=== PATIENT | female | born 1995 | race Caucasian/White ===

== ENCOUNTER 2019-09-02 19:39 | Inpatient (IN) | payer OTHER ==
[~2019-09-02] VITALS: Ht 162.6 cm; Wt 80.9 kg
[2019-09-02] MEDS ORDERED: PRENTAB53 PO (20:31)
[2019-09-02] MEDS ORDERED: LACTATED RINGER'S 1000 ML IV STA (20:47)
--- NOTE | 2019-09-02 21:06 | HPEPDOC ---
Obstetrical History & Physical General Date of Admission Sep 02, 2019 at 20:09 Primary Care Physician: A History of Present Illness Patient is a 23 yo G1 @39+2 weeks gestation by first trimester US presents with concern for LOF at 1900 today. She did not have regular contractions prior to r upture of membranes. denies VB. 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 Past Medical History Medical History denies Surgical History: Other (urehtra sx for recurrent UTI as a child) Family History Significant Family History: No pertinent family hx Social History Marital Status: Family situation: Spouse/partner home Psychosocial History: No pertinent psych hx * Smoker: non-smoker Alcohol: Denies Drugs: denies Imunizations Tdap status: current Influenza Status: needs Allergies Coded Allergies: acetaminophen (Verified Allergy, Unknown, 09/02/19) codeine (Verified Allergy, Unknown, 09/02/19) Medications Scheduled Vit,Calc76/Iron/Folic (Prenatabs Rx Tablet) 1 Each Tablet, 1 TAB PO DAILY Physical Examination Physical Examination GENERAL: Alert and oriented times three. ABDOMEN: Gravid and non-tender to touch. FETUS: fetus is cephalic by Marcello. HEART RATE: Regular rate and rhythm. LUNGS: Clear to auscultation (CTA). EXTREMITIES: No edema/erythema/tenderness EFW: 3200 gm BY Marcello Laboratory Data 24H LABS Laboratory Tests 2 09/02/19 20:39: Serology Scanned Report Hepatitis B Testing Pertinent Laboratoy Data Blood Type: O+ RBC Antibody Screen: Negative HIV: Negative Hepatitis B: Negative Rapid Plasma Reagin: Nonreactive Rubella: Immune Chlamydia/Gonorrhea: Negative Group B Streptococcus: Negative ([id number]) Anatomy Ultrasound Ultrasound Date: May 04, 2019 Placenta Location: Posterior Normal Anatomy: Yes Placenta Previa: No Vaginal Examination Dilation: 1cm Effacement: 50% Station: -3 Cervical Consistency: Soft Cervical Position: Middle Presentation: Cephalic presentation Assessment Heart Rate (FHR): 135 Variability: Moderate Accelerations: Positive Decelerations: None, Early Tocometer Contractions: Yes Assessment/Plan Assessment patient is a 23 yo G1 @39+2wks gestation with PROM at 1900 today. Discussed using oxytocin to augment labor as indicated. Discussed monitoring with external monitors for contractions and heart rate with internal monitor as clinically indicated. Risk of delivery for maternal/ concerns, risk of infection requiring iv antibiotics, bleeding needing blood transfusion and associated risk of anaphylactic reaction and transmission of blood borne pathogens such as HIV and hepatitis, use of forceps or vacuum to assist in vaginal delivery in an emergency or maternal exhaustion and associated risks of injuring to baby and worsen maternal laceration, episiotomy discussed with patient. Plan Admit and orient. Biomedical Equipment Technician and consent. Diet: clears Group B Streptococcus (GBS) neg. Labs and intravenous (IV) per unit protocol. Anticipate [normal spontaneous delivery ()]. C-S as appropriate. YAMEL NEVES DO Sep 02, 2019 21:01
[2019-09-02] MEDS ORDERED: OXYTOCIN DRIP 30 UNITS in IV 1 EA IV SCH (21:15)
[2019-09-02 22:26] LABS: HEMATOCRIT 37.9 % (36.0-47.0); HEMOGLOBIN 12.6 g/dl (12.0-15.5); MEAN CORPUSCULAR HEMOGLOBIN 30.1 pg (27.0-33.0); MEAN CORPUSCULAR HGB CONC 33.2 g/dl (32.0-36.5); MEAN CORPUSCULAR VOLUME 90.7 fl (80.0-96.0); PLATELET COUNT, AUTOMATED 195 10^3/uL (150-450); RED BLOOD COUNT 4.18 10^6/uL (4.00-5.40); WHITE BLOOD COUNT 10.1 10^3/uL (4.0-10.0)
[2019-09-02 22:45] VITALS: BP 136/89
[2019-09-02 23:00] VITALS: BP 129/71
[2019-09-02 23:30] VITALS: BP 135/80
[2019-09-02] MEDS: LR 1,000 ML IV SCH (23:58)
[2019-09-03] VITALS (72 sets, daily range): BP systolic 95–170; BP diastolic 57–117
[2019-09-03] MEDS ORDERED: PROMETHAZINE INJ 25 MG/ML VIAL (J2550) IV ONE (01:15)
[2019-09-03] MEDS ORDERED: NALBUPHINE HCL 10 MG/ML AMP (J2300) IV ONE (01:15)
[2019-09-03] MEDS ORDERED: NALBUPHINE HCL 10 MG/ML AMP (J2300) IM ONE (01:15)
[2019-09-03] MEDS: LR 1,000 ML IV SCH ×3 (03:57→10:52)
[2019-09-03] MEDS ORDERED: FENTANYL 2MCG/ML ROPIVACAINE 0.2% IN 0.9% NACL 100ML IVBAG As Ordered ONE (05:40)
[2019-09-03] MEDS ORDERED: REFRIGERATOR IV KEYS XX PRN (06:00)
[2019-09-03] MEDS ORDERED: EPIDURAL COMMENT XX SCH (06:00)
[2019-09-03] MEDS ORDERED: EPIDURAL/PCA KEYS XX PRN (06:00)
[2019-09-03] MEDS ORDERED: FENTANYL/ROPIVACAINE/NACL BAG 100 ML EPIDURAL SCH (06:00)
[2019-09-03] MEDS ORDERED: diphenhydrAMINE INJ 50MG/ML VIAL (J1200) IV PRN (06:00)
[2019-09-03] MEDS ORDERED: NALOXONE INJ 0.4 MG/1 ML VIAL (J2310) IV PRN (06:00)
[2019-09-03] MEDS ORDERED: ONDANSETRON 4MG/2ML VIAL (J2405) IV PRN (06:00)
[2019-09-03] MEDS ORDERED: LACTATED RINGER'S 1000 ML IV PRN (06:00)
[2019-09-03] MEDS ORDERED: ePHEDrine SULFATE 25 MG/5 ML(5MG/ML) SYRINGE IV PRN (06:00)
[2019-09-03] MEDS ORDERED: ePHEDrine SULFATE 25 MG/5 ML(5MG/ML) SYRINGE As Ordered ONE (07:00)
[2019-09-03] MEDS ORDERED: OXYTOCIN INJ 10 UNITS/ML VIAL (J2590) IV ONE ×2 (12:30→13:30)
--- NOTE | 2019-09-03 12:54 | IPN ---
DATE: 09/03/2019 23-year-old 1, at 39 and 2 weeks of gestation was admitted with spontaneous contractions and ruptured membranes. She has no specific risk factors. She had an epidural in place. She had some variables early. On examination after epidural, she is found to be fully dilated, +1 station in the left occiput transverse (LOT) position. Category 1 strip. We are going allow her to labor down, and we anticipate a vaginal delivery. Safe to proceed.
[2019-09-03 13:07] LABS: CORD GAS ABE A -3.3; CORD GAS HCO3 A 20.3 MEQ/L; CORD GAS O2 SAT A 71.7 %; CORD GAS PCO2 A 33.5 mmHg; CORD GAS PH A 7.401 UNITS; CORD GAS PO2 A 27.2 mmHg; CORD GAS TCO2 A 21.4 MEQ/L
[2019-09-03 13:10] LABS: CORD GAS ABE V -2.7; CORD GAS O2 SAT V 75.7 %; CORD GAS PCO2 V 30.5 mmHg; CORD GAS PH V 7.434 UNITS; CORD GAS PO2 V 29.7 mmHg; CORD GAS SBC V 21.6 MEQ/L; CORD GAS TCO2 V 20.9 MEQ/L
[2019-09-03] MEDS: OXYTOCIN DRIP 30 UNITS in IV 1 EA IV SCH ×2 (13:19→17:19)
[2019-09-03] MEDS ORDERED: RHOGAM 300 MCG (1500 IU) INJ (J2790) IM SCH (13:30)
[2019-09-03] MEDS ORDERED: METHYLERGONOVINE MALEATE 0.2 MG TAB PO PRN (13:30)
[2019-09-03] MEDS ORDERED: ACETAMINOPHEN TAB 650MG DOSE (2X325MG) PO PRN (13:30)
[2019-09-03] MEDS ORDERED: IBUPROFEN 800 MG TAB PO PRN (13:30)
[2019-09-03] MEDS ORDERED: IBUPROFEN 600 MG TAB PO PRN (13:30)
[2019-09-03] MEDS ORDERED: DOCUSATE SODIUM 100 MG CAP PO PRN (13:30)
[2019-09-03] MEDS ORDERED: ANUSOL HC CREAM 30GM TOP PRN (13:30)
[2019-09-03] MEDS ORDERED: DIBUCAINE 1% OINTMENT 30GM TOP PRN (13:30)
[2019-09-03] MEDS ORDERED: MEASLES,MUMPS,RUBELLA VACCINE INJ (MMR-II) (90707) SC SCH (13:30)
[2019-09-03] MEDS ORDERED: MOM 30ML SUSPENSION UDC PO PRN (13:30)
[2019-09-03] MEDS: ACETAMINOPHEN 500 MG TAB PO PRN (13:40)
[2019-09-03] MEDS: PRENATAL VITAMINS CHEWABLE TABLET PO SCH (15:19)
[2019-09-04 06:00] VITALS: BP 117/57
[2019-09-04 06:23] LABS: HEMATOCRIT 34.2 % (36.0-47.0); HEMOGLOBIN 11.4 g/dl (12.0-15.5); MEAN CORPUSCULAR HGB CONC 33.3 g/dl (32.0-36.5); PLATELET COUNT, AUTOMATED 149 10^3/uL (150-450); WHITE BLOOD COUNT 13.9 10^3/uL (4.0-10.0)
--- NOTE | 2019-09-04 08:46 | IPNPDOC ---
Progress Note Date of Service: Sep 04, 2019 Day#: 1 Progress Note SUBJECT: Patient is a 23 yo S/P ppd #1. She has been ambulating, voiding spontaneously without issue and tolerating regular diet. Breast feeding without issue. Reports lochia is like a heavey period. Patient reports history of depression and was on medication prior to being . She had stopped her medication when she found out she is . She is concern about depression and requests to be restarted on anti depression medications. Plans on using norqd for contraceptive. OBJECTIVE: VITAL SIGNS: Within normal limits, afebrile. Alert and oriented times three. Abdomen: Fundus firm at U-2. Soft, NTTP. A/P patient is ppd#1, doing well. Discussed with patient regarding importance of seeing behavior health in conjunction with medical therapy. Behavior health consult placed for patient. Will start patient on zoloft at home. encourage bf. routine ppc. anticipate d/c home on ppd #2. Le, do VS, I&O, 24H, Fishbone Vital Signs/I&O Vital Signs Date Time Temp Pulse Resp B/P (MAP) Pulse Ox O2 Delivery O2 Flow Rate FiO2 09/04/19 06:00 100.0 61 18 117/57 (77) 96 Room Air I&O- Last 24 Hours up to 6 AM 09/04/19 06:00 Intake Total 4950 ml Output Total 3525 ml Balance 1425 ml Laboratory Data 24H LABS Laboratory Tests 2 09/03/19 13:02: Cord Arterial Blood pH 7.401, Cord Arterial Blood PCO2 33.5, Cord Arterial Blood PO2 27.2, Cord Arterial Blood HCO3 20.3, Cord Arterial Blood Total CO2 21.4, Cord Arterial Blood Base Excess -3.3, Cord Arterial Base Excess (Standard 21.0, Cord Arterial Bld Oxygen Saturation 71.7, Cord Venous Blood pH 7.434, Cord Venous Blood PCO2 30.5, Cord Venous Blood PO2 29.7, Cord Venous Blood HCO3 20.0, Cord Venous Blood Total CO2 20.9, Cord Venous Base Excess (Actual) -2.7, Cord Venous Base Excess (Standard) 21.6, Cord Venous Blood Oxygen Saturation 75.7 09/04/19 06:08: Nucleated Red Blood Cells % (auto) 0.0 CBC/BMP Laboratory Tests 09/04/19 06:08 YAMEL NEVES DO Sep 04, 2019 08:46
[2019-09-04 09:00] VITALS: BP 123/77
[2019-09-04] MEDS ORDERED: INFLUENZA QUADRIVALENT PF VACCINE 0.5ML SYRINGE (90686) IM ONE (09:00)
[2019-09-04] MEDS: PRENATAL VITAMINS CHEWABLE TABLET PO SCH (10:23)
[2019-09-04 17:50] VITALS: BP 118/79
--- NOTE | 2019-09-04 18:01 | DN ---
DATE: 09/03/2019 1, para 0 admitted with contractions and spontaneous rupture of membranes at 39+ weeks of gestation. With epidural in place had a spontaneous vaginal delivery of a live male infant weighing 3740 grams, scores 8 and 9 at 1 and 5 minutes respectively, weight 8 pounds 4 ounces. Arterial pH 7.4, base excess -3.3, venous pH 7.43, base excess -2.7. Placenta delivered spontaneously thereafter. Three-vessel cord. Membranes and tissues intact. She had a first-degree tear oversewn in the usual fashion with Vicryl 2-0 on a J339. Uterus contracted well down on Pitocin. Anterior, posterior, and lateral catalan were complete. Sphincter was tight. No evidence of tears or extensions or lacerations. Moderate amount of hemorrhoids. The patient and baby tolerated procedure well.
[2019-09-04] MEDS: ACETAMINOPHEN 500 MG TAB PO PRN (19:55)
[2019-09-05 06:00] VITALS: BP 118/57
--- NOTE | 2019-09-05 08:06 | IPNPDOC ---
Progress Note Date of Service: Sep 05, 2019 Day#: 2 Progress Note SUBJECT: Patient is a 23 yo S/P ppd #2. She has been ambulating, void ing spontaneously without issue and tolerating regular diet. Breast feeding without issue. Reports lochia is like a normal period. Plans on using norqd for contraceptive. OBJECTIVE: VITAL SIGNS: Within normal limits, afebrile. Alert and oriented times three. Abdomen: Fundus firm at U-2. Soft, NTTP. A/P patient is ppd #2, doing well. encourage bf. routine ppc. discharge instr uctions. d/c home today with f/u in clinic in 2 weeks. do Leonie VS, I&O, 24H, Fishbone Vital Signs/I&O Vital Signs Date Time Temp Pulse Resp B/P (MAP) Pulse Ox O2 Delivery O2 Flow Rate FiO2 09/05/19 06:00 99.1 77 20 118/57 (77) 98 Room Air YAMEL NEVES DO Sep 05, 2019 08:06
--- NOTE | 2019-09-05 08:07 | OBDS ---
[facility] Obstetrical Discharge Sum. Obstetrical Discharge Summary Measurement And Verification Engineer/Provider: YAMEL NEVES DO Date: Sep 05, 2019 : 1 Term: 0 Pre-term: 0 Abortions: 0 Livin VDRL: Non-Reactive Rh: Positive Rubella: Immune Infant Sex: Male Weight: pounds (8), ounces (4), grams ([id number]) Anesthesia: Regional Anesthesia A/P, Post Course List any complications Admission diagnosis: gravid @39+2wks PROM Discharge diagnosis: Condition at Discharge: stable Discharge Instructions: Home Activity: as tolerated Diet: regular Medications: filled Follow-up: 2 weeks patient is a 23 yo admitted for premature ruptured of membranes. She progressed to have a spontaneous vaginal delivery. course uncomplicated and patient discharged on day #2. YAMEL NEVES DO Sep 04, 2019 14:42
[2019-09-05] MEDS: PRENATAL VITAMINS CHEWABLE TABLET PO SCH (08:12)
== END 2019-09-05 12:50 | disposition home or self-care (01) | DRG 807 ==
LOC: M LDO 19:39 → M LDI 20:09 → M OBS 09-03 14:56
PROVIDERS: ADMIT Obstetrics & Gynecology; ATTEND Obstetrics & Gynecology
PROC: 10E0XZZ Delivery of Products of Conception, External Approach (ICD-10-PCS; principal; 2019-09-03)
PROC: 0HQ9XZZ Repair Perineum Skin, External Approach (ICD-10-PCS; 2019-09-03)
DX: O42.02 Full-term premature rupture of membranes, onset of labor within 24 hours of rupture (principal); Z37.0 Single live birth; Z3A.39 39 weeks gestation of pregnancy; O70.0 First degree perineal laceration during delivery

== ENCOUNTER → 2023-05-01 | Outpatient (REF) | payer OTHER ==
[~2023-05-01] MED LIST: PRENTAB53 PO
== END ==
LOC: M LAB REF 16:44
PROVIDERS: ATTEND Nurse Practitioner Family
DX: R30.0 Dysuria (principal)

== ENCOUNTER 2023-12-04 14:16 | Emergency (ER) | payer OTHER ==
[~2023-12-04] VITALS: Ht 162.6 cm; Wt 60.0 kg
[2023-12-04 15:25] LABS: BASO # 0.1 10^3/uL (0.0-0.2); BASO % 1.4 % (0.0-1.0); EOS # 0.1 10^3/uL (0.0-0.5); EOS % 1.7 % (0.0-3.0); HEMATOCRIT 34.8 % (36.0-47.0); HEMOGLOBIN 10.9 g/dl (12.0-15.5); LYMPH # 1.7 10^3/uL (1.5-5.0); LYMPH % 22.4 % (24.0-44.0); MEAN CORPUSCULAR HEMOGLOBIN 27.7 pg (27.0-33.0); MEAN CORPUSCULAR HGB CONC 31.3 g/dl (32.0-36.5); MEAN CORPUSCULAR VOLUME 88.5 fl (80.0-96.0); MONO # 0.6 10^3/uL (0.0-0.8); MONO % 8.2 % (2.0-8.0); NEUTROPHILS # 5.1 10^3/uL (1.5-8.5); PLATELET COUNT, AUTOMATED 287 10^3/uL (150-450); RED BLOOD COUNT 3.93 10^6/uL (4.00-5.40); WHITE BLOOD COUNT 7.8 10^3/uL (4.0-10.0)
[2023-12-04 15:54] LABS: ALBUMIN 3.4 G/DL (3.2-5.2); ALKALINE PHOSPHATASE 84 U/L (46-116); ALT/SGPT 12 U/L (7.0-40); AST/SGOT 14 U/L (<34); BILIRUBIN,DIRECT < 0.1 MG/DL (<0.4); BILIRUBIN,TOTAL 0.2 MG/DL (0.3-1.2); BLOOD UREA NITROGEN 11 MG/DL (9-23); CALCIUM LEVEL 8.5 MG/DL (8.5-10.1); CARBON DIOXIDE LEVEL 29 MMOL/L (20-31); CHLORIDE LEVEL 105 MMOL/L (98-107); CREATININE FOR GFR 0.67 MG/DL (0.55-1.30); GLOMERULAR FILTRATION RATE > 60.0 (>60); GLUCOSE, FASTING 108 MG/DL (60-100); MAGNESIUM LEVEL 1.9 MG/DL (1.8-2.4); POTASSIUM SERUM 3.7 MMOL/L (3.5-5.1); SODIUM LEVEL 136 MMOL/L (136-145); TOTAL PROTEIN 6.1 G/DL (5.7-8.2)
[2023-12-04 16:03] LABS: AMPHETAMINES LEVEL URINE NEGATIVE (NEGATIVE); BARBITURATES URINE NEGATIVE (NEGATIVE); BENZODIAZEPINES URINE NEGATIVE (NEGATIVE); COCAINE METABOLITE URINE NEGATIVE (NEGATIVE); METHADONE URINE NEGATIVE (NEGATIVE); OPIATES URINE NEGATIVE (NEGATIVE); PHENCYCLIDINE URINE NEGATIVE (NEGATIVE)
[2023-12-04 16:09] LABS: CANNABINOIDS URINE POSITIVE (NEGATIVE)
[2023-12-04 16:30] VITALS: BP 111/69
[2023-12-04 16:31] VITALS: TEMP 98.1; O2SAT 98
== END 2023-12-04 16:42 | disposition home or self-care (01) ==
LOC: EDBD 14:16 → M ED 14:16
DX: R56.9 Unspecified convulsions (principal); F12.10 Cannabis abuse, uncomplicated; Z88.8 Allergy status to other drugs, medicaments and biological substances; Z79.810 Long term (current) use of selective estrogen receptor modulators (SERMs)

== ENCOUNTER → 2024-06-21 | Outpatient (CLI) | payer OTHER | LOC: M OUTALCOH 07:39 | PROVIDERS: ATTEND Psychiatry & Neurology Psychiatry | DX: F10.10 Alcohol abuse, uncomplicated (principal); F12.20 Cannabis dependence, uncomplicated ==

== ENCOUNTER 2024-06-28 08:44 | Outpatient (RCR) | payer OTHER | END 2024-07-05 | LOC: M OUTALCOH 08:44 | PROVIDERS: ATTEND Psychiatry & Neurology Psychiatry | DX: F10.10 Alcohol abuse, uncomplicated (principal); F12.10 Cannabis abuse, uncomplicated ==

== ENCOUNTER → 2024-08-05 | Outpatient (RCR) | payer OTHER | LOC: M OUTALCOH 07-09 09:57 | PROVIDERS: ATTEND Psychiatry & Neurology Psychiatry | DX: F10.10 Alcohol abuse, uncomplicated (principal); F12.10 Cannabis abuse, uncomplicated ==

== ENCOUNTER 2024-08-26 16:00 | Outpatient (RCR) | payer OTHER | END 2024-09-04 | LOC: M OUTALCOH 16:00 | PROVIDERS: ATTEND Psychiatry & Neurology Psychiatry | DX: F10.10 Alcohol abuse, uncomplicated (principal); F12.10 Cannabis abuse, uncomplicated ==

== ENCOUNTER 2024-09-20 09:00 | Outpatient (RCR) | payer OTHER | END 2024-10-05 | LOC: M OUTALCOH 09:00 | PROVIDERS: ATTEND Psychiatry & Neurology Psychiatry | DX: F10.10 Alcohol abuse, uncomplicated (principal); F12.10 Cannabis abuse, uncomplicated ==

== ENCOUNTER → 2025-05-09 | Outpatient (REF) | payer OTHER | LOC: M LAB REF 11:39 | PROVIDERS: ATTEND Student in an Organized Health Care Education/Training Program | DX: R30.0 Dysuria (principal) ==